=== PATIENT | female | born 1950 | race African-American/Black ===

== ENCOUNTER 2017-04-24 10:30 | Inpatient (IN) | payer MEDICARE ==
[2017-04-25 10:51] VITALS: BMI 35.6
[2017-05-02] MEDS ORDERED: Bacitracin Zinc Ointment 30 gm TUBE ONE (06:29)
[2017-05-02] MEDS ORDERED: Sodium Chloride 0.9% 10 ML ONE (06:29)
[2017-05-02] MEDS ORDERED: Levofloxacin 500 mg/D5W 100 ml Premix Bag ONE (07:03)
[2017-05-02] MEDS ORDERED: Midazolam HCl 2 mg/2 ml Vial ONE (07:04)
[2017-05-02] MEDS ORDERED: Fentanyl 100 MCG/2 ML VIAL ONE ×4 (07:04→12:38)
[2017-05-02] MEDS ORDERED: Promethazine HCl 25 MG/ML VIAL ONE ×2 (07:04→12:57)
[2017-05-02] MEDS ORDERED: Succinylcholine Chloride 20 MG/ML 10 ml SYRINGE FS ONE (07:32)
[2017-05-02] MEDS ORDERED: Lidocaine 1% PF 5 ML VIAL ONE (07:32)
[2017-05-02] MEDS ORDERED: Glycopyrrolate 0.2 MG/ML 5 ML SYRINGE ONE (07:32)
[2017-05-02] MEDS ORDERED: Ondansetron HCl/PF 4 MG/2 ML Vial ONE (07:32)
[2017-05-02] MEDS ORDERED: ePHEDrine/0.9% NaCl/PF SYRINGE 50 mg/10 ml ONE (07:32)
[2017-05-02] MEDS ORDERED: Propofol 200 MG/20 ML VIAL ONE (07:32)
[2017-05-02] MEDS ORDERED: Dexamethasone 20 MG/5 ML VIAL ONE (07:32)
[2017-05-02] MEDS ORDERED: PHENYLEPHRINE-NS 100 MCG/ML 10 ML SYRINGE ONE (07:32)
[2017-05-02] MEDS ORDERED: Phenylephrine 10 MG/NS 250 ML 250 ML ONE (08:01)
--- NOTE | 2017-05-02 08:59 | OP ---
DATE OF PROCEDURE: 05/02/2017 SURGEON: Yaakov Crawford M.D. BOARDING HOUSE MANAGER: Trev Page PA-C. PROCEDURE: C2-C4 laminectomy, posterolateral arthrodesis C3-4, demineralized bone matrix, local mor selized autograft, lateral mass screw instrumentation C3-4. PROCEDURE IN DETAIL: The patient was brought into the operating room, intubated. She was rolled in the prone position on gel-filled chest rolls with the head fixed in the kali truck headlight assembler. An inc ision was made exposing C2 through C4 and our level was confirmed by x-ray. We performed complete C 4, complete C3, and complete C2 laminectomies, completely decompressing the spinal cord. We next pl aced lateral mass screws at right C3, right C4, connected the screws by a tanya, which was secured by nuts that were final tightened. The wound was extensively irrigated, immaculate hemostasis was secu red. A combination of demineralized bone matrix and local morselized autograft was laid over the le ft laminar and posterolateral surfaces for the purpose of arthrodesis. Vancomycin powder was applie d and the wound was closed in anatomic layers.
[2017-05-02] MEDS ORDERED: SUGAMMADEX SODIUM 500 MG/5 ML VIAL ONE (09:12)
[2017-05-02] MEDS ORDERED: Promethazine HCl 25 MG/ML VIAL SLOW IVP PRN (09:27)
[2017-05-02] MEDS ORDERED: Ondansetron HCl/PF 4 MG/2 ML Vial IVP PRN ×3 (09:27→18:27)
[2017-05-02] MEDS ORDERED: HYDROmorphone 2 MG/ML VIAL SLOW IVP PRN (09:27)
[2017-05-02] MEDS ORDERED: HYDROcodone/Acetaminophen 7.5/325 mg Tablet PO PRN ×2 (10:56)
[2017-05-02] MEDS ORDERED: Acetaminophen 650 MG Suppository PR PRN (10:56)
[2017-05-02] MEDS ORDERED: Morphine Sulfate 2 MG/ML SYRINGE SLOW IVP PRN (10:56)
[2017-05-02] MEDS ORDERED: Acetaminophen 325 MG TAB PO PRN (10:56)
[2017-05-02] MEDS ORDERED: Lidocaine 5% Patch TD PRN (11:03)
[2017-05-02] MEDS ORDERED: Lidocaine Patch Removal 1 EACH TOP SCH (11:15)
[2017-05-02] MEDS ORDERED: Meperidine HCl/PF 25 MG/ML VIAL ONE (11:51)
[2017-05-02] MEDS: Fentanyl 100 MCG/2 ML VIAL SLOW IVP PRN ×2 (16:29→18:29)
[2017-05-02] MEDS: Sodium Chloride 0.9% 1,000 ML IV SCH ×2 (17:24→20:38)
[2017-05-02] MEDS: Cyclobenzaprine 10 MG TAB PO PRN (17:26)
--- NOTE | 2017-05-02 17:33 | PDOC.PN ---
- Subjective Encounter Start Date: 05/02/17 Encounter Start Time: 17:00 Pt seen for management of medical comorbidities including diabetes mellitus. Reports pain at surgical site. Denies chest pain, shortness of breath, fever or chills. - Objective MAR Reviewed: Yes Vital Signs & Weight: Weight Weight 201 lb Additional Labs: Accuchecks 05/02/17 14:43 POC Glucose 168 H Phys Exam - Physical Examination Obese HEENT: moist MMs Neck: supple Respiratory: no wheezing, no rales, no rhonchi, clear to auscultation bilateral Cardiovascular: RRR, no rub Gastrointestinal: soft, positive bowel sounds Dressing over upper back; drain+ Neurological: moves all 4 limbs Psychiatric: normal affect Skin: no rash Dx/Plan (1) Diabetes mellitus type 2 in obese Code(s): E11.69 - TYPE 2 DIABETES MELLITUS WITH OTHER SPECIFIED COMPLICATION; E66.9 - OBESITY, UNSPECIFIED Status: Chronic (2) Dyslipidemia Code(s): E78.5 - HYPERLIPIDEMIA, UNSPECIFIED Status: Chronic (3) Chronic back pain Code(s): M54.9 - DORSALGIA, UNSPECIFIED; G89.29 - OTHER CHRONIC PAIN Status: Chronic - Plan PT/OT * . Continue insulin sliding scale. Monitor vital signs per unit protocol. Continue statin. DVT prophylaxis and pain management per surgical service. Code status: Full. s/p C-spine surgery Review of Systems - Review of Systems Constitutional: negative: Fever, Chills, Sweats, Weakness, Malaise Respiratory: negative: Cough, Dry, Shortness of Breath, Hemoptysis, SOB with Excertion, Pleuritic Pain, Sputum, Wheezing Cardiovascular: negative: Chest Pain, Palpitations, Orthopnea, Paroxysmal Noc. Dyspnea, Edema, Light Headedness Musculoskeletal: Back Pain - Medications/Allergies Allergies/Adverse Reactions: Allergies Allergy/AdvReac Type Severity Reaction Status Date / Time Gadolinium-Containing Allergy Severe Anaphylaxis Verified 04/25/17 10:50 Contrast Medi iodine Allergy Severe Swollen Verified 04/25/17 10:50 tongue clindamycin Allergy Verified 04/25/17 10:50 hydrocodone Allergy Verified 04/25/17 10:50 morphine Allergy Verified 04/25/17 10:50 Penicillins Allergy Verified 04/25/17 10:50 prednisone Allergy "puts Verified 04/25/17 10:52 fluid on my body" Sulfa (Sulfonamide Allergy Verified 04/25/17 10:50 Antibiotics) steroids Allergy "puts Uncoded 04/25/17 10:52 fluid on my body" Medications: Current Medications Acetaminophen (Tylenol) 650 mg PO Q4H PRN PRN Reason: Headache/Fever or Pain(1-3) Acetaminophen (Tylenol) 650 mg [place] Q4H PRN PRN Reason: Headache/Fever or Pain(1-3) Artificial Tears (Tears Naturale) 1 drop EA EYE TID [facility] Atorvastatin Calcium (Lipitor) 20 mg PO HS [facility] Calcium Carbonate (Tums) 500 mg PO DAILY [facility] Cefazolin Sodium (Ancef) 2 gm SLOW IVP Q8HR [facility] Last Admin: 05/02/17 17:29 Dose: Not Given Cholecalciferol (Vitamin D3) 10,000 units PO DAILY [facility] Cyclobenzaprine HCl (Flexeril) 10 mg PO Q8H PRN PRN Reason: Muscle Spasm Last Admin: 05/02/17 17:26 Dose: 10 mg Duloxetine HCl (Cymbalta) 30 mg PO BID [facility] Fentanyl (Sublimaze) 50 mcg SLOW IVP Q2H PRN PRN Reason: Moderate to Severe Pain (6-10) Last Admin: 05/02/17 16:29 Dose: 50 mcg Ferrous Sulfate (Feosol) 325 mg PO MoFr@0900 [facility] Fluticasone Propionate (Flonase Nasal [place]) 0 gm NASAL HS [facility] Gabapentin (Neurontin) 600 mg PO QPM [facility] Guaifenesin (Mucinex) 1,200 mg PO Q12HR [facility] Hydrochlorothiazide (Hydrochlorothiazide) 12.5 mg PO DAILY [facility] Sodium Chloride (Normal Saline 0.9%) 1,000 mls @ 75 mls/hr IV .[id number] [facility] Last Admin: 05/02/17 17:24 Dose: Not Given Lidocaine (Lidoderm 5% Patch) 1 patch TD DAILYPRN PRN PRN Reason: Pain Metformin HCl (Glucophage) 500 mg PO BID[facility] Last Admin: 05/02/17 16:30 Dose: 500 mg Miscellaneous Medication (Lidocaine Patch Removal) 1 each TOP ASDIR [facility] Ondansetron HCl (Zofran) 4 mg IVP Q6H PRN PRN Reason: Nausea/Vomiting Oxybutynin Chloride (Ditropan Xl) 5 mg PO DAILY [facility] Biotin 1000 Mcg 0 each PO DAILY [facility] Polyethylene Glycol (Miralax) 17 gm PO DAILYPRN PRN PRN Reason: CONSTIPATION Sodium Chloride (Flush - Normal Saline) 10 ml IVF Q12HR [facility] Sodium Chloride (Flush - Normal Saline) 10 ml IVF PRN PRN PRN Reason: Saline Flush
[2017-05-02] MEDS ORDERED: Dextrose 50% Abboject 50 ML SYRINGE SLOW IVP PRN (17:35)
[2017-05-02] MEDS ORDERED: Dextrose 5% in Water 1,000 ML IV PRN (17:35)
[2017-05-02] MEDS ORDERED: HumaLOG 300 UNITS/3 ML VIAL SC PRN (17:35)
[2017-05-02] MEDS: Artificial Tears 18 DROP/0.9 ML EA EYE SCH ×2 (17:39→22:33)
[2017-05-02] MEDS ORDERED: diphenhydrAMINE HCl 50 MG/ML 1 ML VIAL IM PRN (18:27)
[2017-05-02] MEDS ORDERED: diphenhydrAMINE HCl 50 MG/ML 1 ML VIAL IVP PRN (18:27)
[2017-05-02] MEDS ORDERED: HYDROmorphone 10 mg/100 ml CADD IVPB PRN (18:27)
[2017-05-02] MEDS ORDERED: Promethazine HCl 25 MG/ML VIAL IM PRN (18:27)
[2017-05-02] MEDS ORDERED: diphenhydrAMINE HCl 25 MG CAP PO PRN (18:27)
[2017-05-02] MEDS ORDERED: Naloxone HCl 0.4 mg/ml Vial IV PRN (18:27)
[2017-05-02] MEDS ORDERED: Zolpidem Tartrate 5 MG TAB PO PRN (18:27)
[2017-05-02] MEDS ORDERED: Communication Order-Pharmacy FS SCH (18:30)
[2017-05-02] MEDS ORDERED: Fentanyl 5000 MCG/250 ML CADD IV PRN (18:45)
[2017-05-02] MEDS: guaiFENesin ER 600 MG TAB PO SCH (22:29)
[2017-05-02] MEDS: Atorvastatin Calcium 20 MG TAB PO SCH (22:29)
[2017-05-02] MEDS: Fluticasone Propionate Nasal Spray 16 gm Bottle NASAL SCH (22:29)
[2017-05-02] MEDS: Gabapentin 300 MG CAP PO SCH (22:32)
[2017-05-03] MEDS: Polyethylene Glycol 3350 17 GM Packet PO PRN (07:30)
[2017-05-03] MEDS ORDERED: BIOTIN 1000 MCG PO SCH (09:00)
[2017-05-03] MEDS: Hydrochlorothiazide 25 MG TAB PO SCH (11:00)
[2017-05-03] MEDS: guaiFENesin ER 600 MG TAB PO SCH ×2 (11:02→20:44)
[2017-05-03] MEDS: Calcium Carbonate 500 MG ChewTAB PO SCH ×2 (11:03→11:08)
[2017-05-03] MEDS: Artificial Tears 18 DROP/0.9 ML EA EYE SCH ×3 (11:04→20:49)
--- NOTE | 2017-05-03 11:31 | PDOC.PN ---
- Subjective Encounter Start Date: 05/03/17 Encounter Start Time: 11:29 Patient seen and examined. No new complaints. No overnight events. Pain controlled while on PROCESSING MGR. No new focal deficits.. - Objective MAR Reviewed: Yes Vital Signs & Weight: Vital Signs (12 hours) Temp Pulse Resp BP BP Pulse Ox 05/03/17 09:15 122/89 05/03/17 07:40 98.9 F 65 18 106/49 L 92 L 05/03/17 04:28 99.5 F 72 16 148/52 H 96 05/03/17 00:14 99.5 F 75 18 108/62 94 L Weight Weight 201 lb I&O: 05/02/17 05/03/17 05/04/17 06:59 06:59 06:59 Intake Total 240 Output Total 15 Balance -15 240 Additional Labs: Accuchecks 05/03/17 05/02/17 05/02/17 05:37 20:56 18:12 POC Glucose 112 H 119 H 144 H 05/02/17 14:43 POC Glucose 168 H Phys Exam - Physical Examination Constitutional: NAD Respiratory: no wheezing, no rhonchi Cardiovascular: RRR, no rub Gastrointestinal: soft, non-tender, positive bowel sounds Musculoskeletal: no edema Dx/Plan (1) Chronic back pain Code(s): M54.9 - DORSALGIA, UNSPECIFIED; G89.29 - OTHER CHRONIC PAIN Status: Chronic (2) Dyslipidemia Code(s): E78.5 - HYPERLIPIDEMIA, UNSPECIFIED Status: Chronic (3) Hypertension Code(s): I10 - ESSENTIAL (PRIMARY) HYPERTENSION Status: Chronic (4) Diabetes mellitus type 2 in obese Code(s): E11.69 - TYPE 2 DIABETES MELLITUS WITH OTHER SPECIFIED COMPLICATION; E66.9 - OBESITY, UNSPECIFIED Status: Chronic (5) Obesity (BMI 30-39.9) Code(s): E66.9 - OBESITY, UNSPECIFIED Status: Chronic (6) CKD (chronic kidney disease) stage 2, GFR 60-89 ml/min Code(s): N18.2 - CHRONIC KIDNEY DISEASE, STAGE 2 (MILD) Status: Chronic - Plan cont current plan of care, DVT proph w/SCDs * Cont current meds as below * Cont sliding scale * Cont therapy * Will follow Review of Systems - Review of Systems Constitutional: negative: Fever, Chills, Sweats, Weakness, Malaise, Other Respiratory: negative: Cough, Dry, Shortness of Breath, Hemoptysis, SOB with Excertion, Pleuritic Pain, Sputum, Wheezing Cardiovascular: negative: Chest Pain, Palpitations, Orthopnea, Paroxysmal Noc. Dyspnea, Edema, Light Headedness, Other Neurological: negative: Weakness, Numbness, Incoordination, Change in Speech, Confusion, Seizures, Other - Medications/Allergies Allergies/Adverse Reactions: Allergies Allergy/AdvReac Type Severity Reaction Status Date / Time Gadolinium-Containing Allergy Severe Anaphylaxis Verified 04/25/17 10:50 Contrast Medi iodine Allergy Severe Swollen Verified 04/25/17 10:50 tongue clindamycin Allergy Verified 04/25/17 10:50 hydrocodone Allergy Verified 04/25/17 10:50 morphine Allergy Verified 04/25/17 10:50 Penicillins Allergy Verified 04/25/17 10:50 prednisone Allergy "puts Verified 04/25/17 10:52 fluid on my body" Sulfa (Sulfonamide Allergy Verified 04/25/17 10:50 Antibiotics) steroids Allergy "puts Uncoded 04/25/17 10:52 fluid on my body" Medications: Current Medications Acetaminophen (Tylenol) 650 mg PO Q4H PRN PRN Reason: Headache/Fever or Pain(1-3) Acetaminophen (Tylenol) 650 mg [place] Q4H PRN PRN Reason: Headache/Fever or Pain(1-3) Artificial Tears (Tears Naturale) 1 drop EA EYE TID [facility] Last Admin: 05/03/17 11:04 Dose: 1 drop Atorvastatin Calcium (Lipitor) 20 mg PO HS [facility] Last Admin: 05/02/17 22:29 Dose: Not Given Calcium Carbonate (Tums) 500 mg PO DAILY [facility] Last Admin: 05/03/17 11:08 Dose: Not Given Cefazolin Sodium (Ancef) 2 gm SLOW IVP Q8HR [facility] Last Admin: 05/03/17 05:31 Dose: 2 gm Cholecalciferol (Vitamin D3) 10,000 units PO DAILY [facility] Cyclobenzaprine HCl (Flexeril) 10 mg PO Q8H PRN PRN Reason: Muscle Spasm Last Admin: 05/02/17 17:26 Dose: 10 mg Dextrose/Water (Dextrose 50%) 25 gm SLOW IVP PRN PRN PRN Reason: Hypoglycemia Diphenhydramine HCl (Benadryl) 25 mg IVP Q3H PRN PRN Reason: Itching Diphenhydramine HCl (Benadryl) 25 mg PO Q3H PRN PRN Reason: Itching Diphenhydramine HCl (Benadryl) 25 mg IM Q3H PRN PRN Reason: Itching Duloxetine HCl (Cymbalta) 30 mg PO BID [facility] Last Admin: 05/03/17 11:03 Dose: 30 mg Fentanyl (Fentanyl Cadd) 0 mcg IV INF PRN PRN Reason: Pain Last Admin: 05/02/17 20:02 Dose: 5,000 mcg Ferrous Sulfate (Feosol) 325 mg PO MoFr@0900 [facility] Fluticasone Propionate (Flonase Nasal [place]) 0 gm NASAL HS [facility] Last Admin: 05/02/17 22:29 Dose: Not Given Gabapentin (Neurontin) 600 mg PO QPM [facility] Last Admin: 05/02/17 22:32 Dose: 600 mg Glucagon (Glucagon) 1 mg IM PRN PRN PRN Reason: Hypoglycemia Guaifenesin (Mucinex) 1,200 mg PO Q12HR [facility] Last Admin: 05/03/17 11:02 Dose: 1,200 mg Hydrochlorothiazide (Hydrochlorothiazide) 12.5 mg PO DAILY [facility] Last Admin: 05/03/17 11:00 Dose: 12.5 mg Sodium Chloride (Normal Saline 0.9%) 1,000 mls @ 75 mls/hr IV .[id number] [facility] Last Admin: 05/02/17 20:38 Dose: 1,000 mls Dextrose/Water (D5w) 1,000 mls @ 0 mls/hr IV .Q0M PRN; As Directed PRN Reason: Hypoglycemia Insulin Human Lispro (Humalog) 0 units SC .MILD SLIDING SCALE PRN PRN Reason: Mild Correctional Scale Lidocaine (Lidoderm 5% Patch) 1 patch TD DAILYPRN PRN PRN Reason: Pain Metformin HCl (Glucophage) 500 mg PO BID-[facility] Last Admin: 05/03/17 11:03 Dose: 500 mg Miscellaneous Medication (Lidocaine Patch Removal) 1 each TOP ASDIR [facility] Naloxone HCl (Narcan) 0.2 mg IV Q5MIN PRN PRN Reason: Opiate Reversal Ondansetron HCl (Zofran) 4 mg IVP Q6H PRN PRN Reason: Nausea/Vomiting Oxybutynin Chloride (Ditropan Xl) 5 mg PO DAILY [facility] Last Admin: 05/03/17 11:00 Dose: 5 mg Polyethylene Glycol (Miralax) 17 gm PO DAILYPRN PRN PRN Reason: CONSTIPATION Last Admin: 05/03/17 07:30 Dose: 17 gm Promethazine HCl (Phenergan) 12.5 mg IM Q4H PRN PRN Reason: Nausea/Vomiting Sodium Chloride (Flush - Normal Saline) 10 ml IVF Q12HR [facility] Last Admin: 05/03/17 11:04 Dose: Not Given Sodium Chloride (Flush - Normal Saline) 10 ml IVF PRN PRN PRN Reason: Saline Flush Zolpidem Tartrate (Ambien) 5 mg PO HSPRN PRN PRN Reason: Insomnia
[2017-05-03] MEDS ORDERED: traMADol HCl 50 MG TAB PO PRN (12:31)
[2017-05-03] MEDS: Sodium Chloride 0.9% 1,000 ML IV SCH ×2 (15:57→22:59)
[2017-05-03] MEDS: Atorvastatin Calcium 20 MG TAB PO SCH (20:44)
[2017-05-03] MEDS: Gabapentin 300 MG CAP PO SCH (20:44)
[2017-05-03] MEDS: Fluticasone Propionate Nasal Spray 16 gm Bottle NASAL SCH (20:44)
[2017-05-04] MEDS: Sodium Chloride 0.9% 1,000 ML IV SCH ×2 (03:43→15:57)
[2017-05-04] MEDS: Ferrous Sulfate 325 MG TAB PO SCH (08:52)
[2017-05-04] MEDS: guaiFENesin ER 600 MG TAB PO SCH ×2 (08:53→21:02)
[2017-05-04] MEDS: Calcium Carbonate 500 MG ChewTAB PO SCH (08:54)
[2017-05-04] MEDS: Polyethylene Glycol 3350 17 GM Packet PO PRN (08:54)
[2017-05-04] MEDS: Hydrochlorothiazide 25 MG TAB PO SCH (08:54)
[2017-05-04] MEDS: traMADol HCl 50 MG TAB PO PRN ×2 (08:58→17:52)
[2017-05-04] MEDS: Artificial Tears 18 DROP/0.9 ML EA EYE SCH ×3 (10:17→21:00)
[2017-05-04] MEDS: Cyclobenzaprine 10 MG TAB PO PRN (13:10)
[2017-05-04] MEDS ORDERED: Furosemide 20 MG/2 ML VIAL SLOW IVP SCH (13:30)
--- NOTE | 2017-05-04 15:45 | RAD ---
EXAM: ONE VIEW CHEST 05/04/17 COMPARISON: 09/21/07, 04/03/17. HISTORY: Shortness of breath. Portable upright chest demonstrates atherosclerosis of the aorta. Normal cardiac silhouette. The pul monary vessels and hilum are normal. No masses or consolidation. No pneumothorax or osseous abnorma lities. Surgical fusion hardware is noted. IMPRESSION: 1. No acute cardiopulmonary process. 2. Atherosclerosis. POS: [facility]
--- NOTE | 2017-05-04 19:32 | PDOC.PN ---
- Subjective Encounter Start Date: 05/04/17 Encounter Start Time: 08:00 Patient seen and examined. No new complaints. No overnight events - Objective MAR Reviewed: Yes Vital Signs & Weight: Vital Signs (12 hours) Temp Pulse Resp BP Pulse Ox 05/04/17 18:33 74 12 94 L 05/04/17 17:25 98.7 F 74 18 139/80 97 05/04/17 14:24 94 L 05/04/17 14:23 84 12 05/04/17 12:50 97 05/04/17 12:00 98.9 F 90 19 111/72 05/04/17 08:25 99.2 F 84 19 90 L Weight Weight 201 lb I&O: 05/03/17 05/04/17 05/05/17 06:59 06:59 06:59 Intake Total 960 1200 Output Total 15 55 Balance -15 905 1200 Additional Labs: Accuchecks 05/04/17 05/04/17 05/04/17 17:10 11:32 06:22 POC Glucose 155 H 132 H 130 H 05/03/17 20:13 POC Glucose 140 H Phys Exam - Physical Examination Constitutional: NAD Respiratory: no wheezing, no rales Scat rhonchi at bases Cardiovascular: RRR, no rub Gastrointestinal: soft, positive bowel sounds Musculoskeletal: no edema Neurological: non-focal, moves all 4 limbs Psychiatric: A&O x 3 Dx/Plan (1) Chronic back pain Code(s): M54.9 - DORSALGIA, UNSPECIFIED; G89.29 - OTHER CHRONIC PAIN Status: Chronic (2) Dyslipidemia Code(s): E78.5 - HYPERLIPIDEMIA, UNSPECIFIED Status: Chronic (3) Hypertension Code(s): I10 - ESSENTIAL (PRIMARY) HYPERTENSION Status: Chronic (4) Obesity (BMI 30-39.9) Code(s): E66.9 - OBESITY, UNSPECIFIED Status: Chronic (5) CKD (chronic kidney disease) stage 2, GFR 60-89 ml/min Code(s): N18.2 - CHRONIC KIDNEY DISEASE, STAGE 2 (MILD) Status: Chronic (6) DM2 (diabetes mellitus, type 2) Status: Chronic - Plan cont current plan of care, PT/OT, director of social services, incentive spirometry, DVT proph w/SCDs * Cont home meds including diuretics * Cont current meds as below * Cont sliding scale * Cont therapy * IS encouraged. * Will follow Review of Systems - Review of Systems Constitutional: negative: Fever, Chills, Sweats, Weakness, Malaise, Other Respiratory: Cough, Sputum. negative: Dry, Shortness of Breath, Hemoptysis, SOB with Excertion, Pleuritic Pain, Wheezing Cardiovascular: negative: Chest Pain, Palpitations, Orthopnea, Paroxysmal Noc. Dyspnea, Edema, Light Headedness, Other Gastrointestinal: negative: Nausea, Vomiting, Abdominal Pain, Diarrhea, Constipation, Melena, Hematochezia, Other - Medications/Allergies Allergies/Adverse Reactions: Allergies Allergy/AdvReac Type Severity Reaction Status Date / Time Gadolinium-Containing Allergy Severe Anaphylaxis Verified 04/25/17 10:50 Contrast Medi iodine Allergy Severe Swollen Verified 04/25/17 10:50 tongue clindamycin Allergy Verified 04/25/17 10:50 hydrocodone Allergy Verified 04/25/17 10:50 morphine Allergy Verified 04/25/17 10:50 Penicillins Allergy Verified 04/25/17 10:50 prednisone Allergy "puts Verified 04/25/17 10:52 fluid on my body" Sulfa (Sulfonamide Allergy Verified 04/25/17 10:50 Antibiotics) steroids Allergy "puts Uncoded 04/25/17 10:52 fluid on my body" Medications: Current Medications Acetaminophen (Tylenol) 650 mg PO Q4H PRN PRN Reason: Headache/Fever or Pain(1-3) Acetaminophen (Tylenol) 650 mg [place] Q4H PRN PRN Reason: Headache/Fever or Pain(1-3) Albuterol/Ipratropium (Duoneb) 3 ml NEB [id number] [facility] Last Admin: 05/04/17 18:33 Dose: 3 ml Albuterol/Ipratropium (Duoneb) 3 ml NEB Q2H PRN PRN Reason: SOB &/or Wheezing Artificial Tears (Tears Naturale) 1 drop EA EYE TID [facility] Last Admin: 05/04/17 17:51 Dose: Not Given Atorvastatin Calcium (Lipitor) 20 mg PO HS [facility] Last Admin: 05/03/17 20:44 Dose: 20 mg Calcium Carbonate (Tums) 500 mg PO DAILY [facility] Last Admin: 05/04/17 08:54 Dose: 500 mg Cefazolin Sodium (Ancef) 2 gm SLOW IVP Q8HR [facility] Last Admin: 05/04/17 13:10 Dose: 2 gm Cholecalciferol (Vitamin D3) 10,000 units PO DAILY [facility] Last Admin: 05/04/17 08:57 Dose: 10,000 units Cyclobenzaprine HCl (Flexeril) 10 mg PO Q8H PRN PRN Reason: Muscle Spasm Last Admin: 05/04/17 13:10 Dose: 10 mg Dextrose/Water (Dextrose 50%) 25 gm SLOW IVP PRN PRN PRN Reason: Hypoglycemia Diphenhydramine HCl (Benadryl) 25 mg IVP Q3H PRN PRN Reason: Itching Diphenhydramine HCl (Benadryl) 25 mg PO Q3H PRN PRN Reason: Itching Diphenhydramine HCl (Benadryl) 25 mg IM Q3H PRN PRN Reason: Itching Duloxetine HCl (Cymbalta) 30 mg PO BID [facility] Last Admin: 05/04/17 08:54 Dose: 30 mg Ferrous Sulfate (Feosol) 325 mg PO MoFr@0900 [facility] Last Admin: 05/04/17 08:52 Dose: 325 mg Fluticasone Propionate (Flonase Nasal [place]) 0 gm NASAL HS [facility] Last Admin: 05/03/17 20:44 Dose: 1 spr Gabapentin (Neurontin) 600 mg PO QPM [facility] Last Admin: 05/03/17 20:44 Dose: 600 mg Glucagon (Glucagon) 1 mg IM PRN PRN PRN Reason: Hypoglycemia Guaifenesin (Mucinex) 1,200 mg PO Q12HR [facility] Last Admin: 05/04/17 08:53 Dose: 1,200 mg Hydrochlorothiazide (Hydrochlorothiazide) 12.5 mg PO DAILY [facility] Last Admin: 05/04/17 08:54 Dose: 12.5 mg Sodium Chloride (Normal Saline 0.9%) 1,000 mls @ 75 mls/hr IV .[id number] [facility] Last Admin: 05/04/17 15:57 Dose: Not Given Dextrose/Water (D5w) 1,000 mls @ 0 mls/hr IV .Q0M PRN; As Directed PRN Reason: Hypoglycemia Insulin Human Lispro (Humalog) 0 units SC .MILD SLIDING SCALE PRN PRN Reason: Mild Correctional Scale Lidocaine (Lidoderm 5% Patch) 1 patch TD DAILYPRN PRN PRN Reason: Pain Metformin HCl (Glucophage) 500 mg PO BID-[facility] Last Admin: 05/04/17 17:52 Dose: Not Given Miscellaneous Medication (Lidocaine Patch Removal) 1 each TOP ASDIR [facility] Naloxone HCl (Narcan) 0.2 mg IV Q5MIN PRN PRN Reason: Opiate Reversal Ondansetron HCl (Zofran) 4 mg IVP Q6H PRN PRN Reason: Nausea/Vomiting Oxybutynin Chloride (Ditropan Xl) 5 mg PO DAILY [facility] Last Admin: 05/04/17 09:00 Dose: 5 mg Polyethylene Glycol (Miralax) 17 gm PO DAILYPRN PRN PRN Reason: CONSTIPATION Last Admin: 05/04/17 08:54 Dose: 17 gm Promethazine HCl (Phenergan) 12.5 mg IM Q4H PRN PRN Reason: Nausea/Vomiting Sodium Chloride (Flush - Normal Saline) 10 ml IVF Q12HR [facility] Last Admin: 05/04/17 08:59 Dose: Not Given Sodium Chloride (Flush - Normal Saline) 10 ml IVF PRN PRN PRN Reason: Saline Flush Tramadol HCl (Ultram) 50 mg PO Q6H PRN PRN Reason: PAIN 1-4/10 Last Admin: 05/03/17 16:00 Dose: 50 mg Tramadol HCl (Ultram) 100 mg PO Q6H PRN PRN Reason: PAIN 5-10/10 Last Admin: 05/04/17 17:52 Dose: 100 mg Zolpidem Tartrate (Ambien) 5 mg PO HSPRN PRN PRN Reason: Insomnia
[2017-05-04] MEDS: Gabapentin 300 MG CAP PO SCH (21:01)
[2017-05-04] MEDS: Fluticasone Propionate Nasal Spray 16 gm Bottle NASAL SCH (21:01)
[2017-05-04] MEDS: Atorvastatin Calcium 20 MG TAB PO SCH (21:01)
[2017-05-05] MEDS: Sodium Chloride 0.9% 1,000 ML IV SCH (04:36)
--- NOTE | 2017-05-05 08:21 | PDOC.PN ---
- Subjective Encounter Start Date: 05/05/17 Encounter Start Time: 08:19 Patient seen and examined. No new complaints. No overnight events - Objective MAR Reviewed: Yes Vital Signs & Weight: Vital Signs (12 hours) Temp Pulse Resp BP Pulse Ox 05/05/17 08:07 86 12 05/05/17 04:00 98.1 F 90 18 109/74 91 L 05/05/17 03:33 94 L 05/05/17 02:08 12 05/05/17 00:00 99.1 F 80 20 108/64 94 L 05/04/17 22:05 94 16 Weight Weight 201 lb I&O: 05/04/17 05/05/17 05/06/17 06:59 06:59 06:59 Intake Total 960 2190 Output Total 55 Balance 905 2190 Additional Labs: Accuchecks 05/05/17 05/04/17 05/04/17 05:59 22:19 17:10 POC Glucose 127 H 233 H 155 H 05/04/17 11:32 POC Glucose 132 H Radiology Reviewed by me: Yes (CXR - No infiltrate) Phys Exam - Physical Examination Constitutional: NAD Respiratory: no wheezing, no rhonchi Scat rales at bases Cardiovascular: RRR, no rub Gastrointestinal: soft, non-tender, positive bowel sounds Musculoskeletal: no edema Neurological: non-focal, moves all 4 limbs Dx/Plan (1) Chronic back pain Code(s): M54.9 - DORSALGIA, UNSPECIFIED; G89.29 - OTHER CHRONIC PAIN Status: Chronic (2) Dyslipidemia Code(s): E78.5 - HYPERLIPIDEMIA, UNSPECIFIED Status: Chronic (3) Hypertension Code(s): I10 - ESSENTIAL (PRIMARY) HYPERTENSION Status: Chronic (4) Obesity (BMI 30-39.9) Code(s): E66.9 - OBESITY, UNSPECIFIED Status: Chronic (5) CKD (chronic kidney disease) stage 2, GFR 60-89 ml/min Code(s): N18.2 - CHRONIC KIDNEY DISEASE, STAGE 2 (MILD) Status: Chronic (6) DM2 (diabetes mellitus, type 2) Status: Chronic - Plan cont current plan of care, PT/OT, respiratory therapy, incentive spirometry, DVT proph w/SCDs * Cont nebs * Add stool softeners * IS * Increase HCTZ dose to 25 mg daily * Received one dose of Lasix yesterday * CXR - reviewed * AM labs Review of Systems - Review of Systems Cardiovascular: negative: Chest Pain, Palpitations, Orthopnea, Paroxysmal Noc. Dyspnea, Edema, Light Headedness, Other Gastrointestinal: negative: Nausea, Vomiting, Abdominal Pain, Diarrhea, Constipation, Melena, Hematochezia, Other Genitourinary: negative: Dysuria, Frequency, Incontinence, Hematuria, Retention , Other - Medications/Allergies Allergies/Adverse Reactions: Allergies Allergy/AdvReac Type Severity Reaction Status Date / Time Gadolinium-Containing Allergy Severe Anaphylaxis Verified 04/25/17 10:50 Contrast Medi iodine Allergy Severe Swollen Verified 04/25/17 10:50 tongue clindamycin Allergy Verified 04/25/17 10:50 hydrocodone Allergy Verified 04/25/17 10:50 morphine Allergy Verified 04/25/17 10:50 Penicillins Allergy Verified 04/25/17 10:50 prednisone Allergy "puts Verified 04/25/17 10:52 fluid on my body" Sulfa (Sulfonamide Allergy Verified 04/25/17 10:50 Antibiotics) steroids Allergy "puts Uncoded 04/25/17 10:52 fluid on my body" Medications: Current Medications Acetaminophen (Tylenol) 650 mg PO Q4H PRN PRN Reason: Headache/Fever or Pain(1-3) Last Admin: 05/05/17 06:15 Dose: 650 mg Acetaminophen (Tylenol) 650 mg [place] Q4H PRN PRN Reason: Headache/Fever or Pain(1-3) Albuterol/Ipratropium (Duoneb) 3 ml NEB [id number] [facility] Last Admin: 05/05/17 08:07 Dose: 3 ml Albuterol/Ipratropium (Duoneb) 3 ml NEB Q2H PRN PRN Reason: SOB &/or Wheezing Artificial Tears (Tears Naturale) 1 drop EA EYE TID [facility] Last Admin: 05/04/17 21:00 Dose: 1 drop Atorvastatin Calcium (Lipitor) 20 mg PO HS [facility] Last Admin: 05/04/17 21:01 Dose: 20 mg Calcium Carbonate (Tums) 500 mg PO DAILY [facility] Last Admin: 05/04/17 08:54 Dose: 500 mg Cefazolin Sodium (Ancef) 2 gm SLOW IVP Q8HR [facility] Last Admin: 05/05/17 06:16 Dose: 2 gm Cholecalciferol (Vitamin D3) 10,000 units PO DAILY [facility] Last Admin: 05/04/17 08:57 Dose: 10,000 units Cyclobenzaprine HCl (Flexeril) 10 mg PO Q8H PRN PRN Reason: Muscle Spasm Last Admin: 05/04/17 13:10 Dose: 10 mg Dextrose/Water (Dextrose 50%) 25 gm SLOW IVP PRN PRN PRN Reason: Hypoglycemia Diphenhydramine HCl (Benadryl) 25 mg IVP Q3H PRN PRN Reason: Itching Diphenhydramine HCl (Benadryl) 25 mg PO Q3H PRN PRN Reason: Itching Diphenhydramine HCl (Benadryl) 25 mg IM Q3H PRN PRN Reason: Itching Duloxetine HCl (Cymbalta) 30 mg PO BID [facility] Last Admin: 05/04/17 21:01 Dose: 30 mg Ferrous Sulfate (Feosol) 325 mg PO MoFr@0900 [facility] Last Admin: 05/04/17 08:52 Dose: 325 mg Fluticasone Propionate (Flonase Nasal [place]) 0 gm NASAL HS [facility] Last Admin: 05/04/17 21:01 Dose: 1 spr Gabapentin (Neurontin) 600 mg PO QPM [facility] Last Admin: 05/04/17 21:01 Dose: 600 mg Glucagon (Glucagon) 1 mg IM PRN PRN PRN Reason: Hypoglycemia Guaifenesin (Mucinex) 1,200 mg PO Q12HR [facility] Last Admin: 05/04/17 21:02 Dose: 1,200 mg Hydrochlorothiazide (Hydrochlorothiazide) 25 mg PO DAILY [facility] Dextrose/Water (D5w) 1,000 mls @ 0 mls/hr IV .Q0M PRN; As Directed PRN Reason: Hypoglycemia Insulin Human Lispro (Humalog) 0 units SC .MILD SLIDING SCALE PRN PRN Reason: Mild Correctional Scale Last Admin: 05/04/17 22:20 Dose: 3 unit Lidocaine (Lidoderm 5% Patch) 1 patch TD DAILYPRN PRN PRN Reason: Pain Metformin HCl (Glucophage) 500 mg PO BID-[facility] Last Admin: 05/04/17 17:52 Dose: Not Given Miscellaneous Medication (Lidocaine Patch Removal) 1 each TOP ASDIR [facility] Naloxone HCl (Narcan) 0.2 mg IV Q5MIN PRN PRN Reason: Opiate Reversal Ondansetron HCl (Zofran) 4 mg IVP Q6H PRN PRN Reason: Nausea/Vomiting Oxybutynin Chloride (Ditropan Xl) 5 mg PO DAILY [facility] Last Admin: 05/04/17 09:00 Dose: 5 mg Polyethylene Glycol (Miralax) 17 gm PO DAILYPRN PRN PRN Reason: CONSTIPATION Last Admin: 05/04/17 08:54 Dose: 17 gm Polyethylene Glycol (Miralax) 17 gm PO DAILY [facility] Promethazine HCl (Phenergan) 12.5 mg IM Q4H PRN PRN Reason: Nausea/Vomiting Senna/Docusate Sodium (Senokot S) 1 tab PO BID [facility] Sodium Chloride (Flush - Normal Saline) 10 ml IVF Q12HR [facility] Last Admin: 05/04/17 21:15 Dose: 10 ml Sodium Chloride (Flush - Normal Saline) 10 ml IVF PRN PRN PRN Reason: Saline Flush Last Admin: 05/05/17 06:16 Dose: 10 ml Tramadol HCl (Ultram) 50 mg PO Q6H PRN PRN Reason: PAIN 1-410 Last Admin: 05/03/17 16:00 Dose: 50 mg Tramadol HCl (Ultram) 100 mg PO Q6H PRN PRN Reason: PAIN 5-1010 Last Admin: 05/04/17 17:52 Dose: 100 mg
[2017-05-05] MEDS: Polyethylene Glycol 3350 17 GM Packet PO SCH (09:08)
[2017-05-05] MEDS: guaiFENesin ER 600 MG TAB PO SCH ×2 (09:09→21:05)
[2017-05-05] MEDS: Artificial Tears 18 DROP/0.9 ML EA EYE SCH ×3 (09:09→21:06)
[2017-05-05] MEDS: Calcium Carbonate 500 MG ChewTAB PO SCH (09:09)
[2017-05-05] MEDS: Hydrochlorothiazide 25 MG TAB PO SCH (09:10)
[2017-05-05] MEDS: Senokot S 8.6-50 MG TAB PO SCH ×2 (09:10→21:05)
[2017-05-05 09:13] LABS: Hematocrit 41.3 % (36.0-47.0)
[2017-05-05 09:28] LABS: Anion Gap 15 mmol/L (10-20); BUN (Urea Nitrogen) 7 mg/dL (9.8-20.1); BUN/Creatinine Ratio 8.33; Calc. Creatinine Clearance 92 mL/min (70-130); Calcium 10.1 mg/dL (7.8-10.44); Carbon Dioxide 30 mmol/L (23-31); Chloride 94 mmol/L (98-107); Estimated GFR-MDRD 82; Magnesium 1.7 mg/dL (1.6-2.6); Phosphorus 3.3 mg/dL (2.3-4.7)
[2017-05-05] MEDS ORDERED: Potassium Chloride 10 MEQ TAB PO SCH (10:30)
[2017-05-05] MEDS: Potassium Chloride 10 MEQ TAB PO SCH ×2 (12:07→17:20)
[2017-05-05] MEDS: Cyclobenzaprine 10 MG TAB PO PRN (12:09)
--- NOTE | 2017-05-05 12:55 | PRG ---
DATE OF SERVICE: 05/05/2017 I saw Ms. Amezcua in her hospital room this morning. She is resting comfortably. She is working [facility] physical therapy since her operation to decompress the cervical spine. She is awaiting the rehab placement. Ms. Amezcua is actually doing quite well. Around this weekend to help manage her, I an ticipate a placement in the rehabilitation facility early in the weekend.
--- NOTE | 2017-05-05 12:57 | PRG ---
DATE OF SERVICE: 05/05/2017 Ms. Amezcua is a patient of Dr. Crawford's, status post C2-C4 laminectomy and fusion. Overnight, th ere have been no acute events. Her vital signs have been stable. She has been slightly hypotensive at 91/59. Her labs this morning show a glucose of 127. There are no new neurologic deficits on ex am. Case management has been working on rehab for discharge. She would like to go to [facility] in [place] for rehab. Referral has been placed and we are just waiting for disposition for rehab. Crissy pizarro she is here in the hospital, physical therapy can continue to work with her and ambulate as much as possible. If there are any further questions, please feel free to contact Neurosurgery.
[2017-05-05] MEDS: traMADol HCl 50 MG TAB PO PRN (17:20)
[2017-05-05] MEDS: Fluticasone Propionate Nasal Spray 16 gm Bottle NASAL SCH (21:04)
[2017-05-05] MEDS: Atorvastatin Calcium 20 MG TAB PO SCH (21:05)
[2017-05-05] MEDS: Gabapentin 300 MG CAP PO SCH (21:05)
[2017-05-06 06:13] LABS: Anion Gap 15 mmol/L (10-20); BUN (Urea Nitrogen) 6 mg/dL (9.8-20.1); BUN/Creatinine Ratio 7.89; Calc. Creatinine Clearance 102 mL/min (70-130); Carbon Dioxide 30 mmol/L (23-31); Chloride 98 mmol/L (98-107); Estimated GFR-MDRD Greater than 90; Phosphorus 2.9 mg/dL (2.3-4.7)
[2017-05-06] MEDS ORDERED: Cepastat Lozenges 1 LOZ PO PRN (06:19)
[2017-05-06] MEDS: Potassium Chloride 10 MEQ TAB PO SCH ×3 (08:39→16:51)
[2017-05-06] MEDS: Senokot S 8.6-50 MG TAB PO SCH ×2 (08:39→20:27)
[2017-05-06] MEDS: guaiFENesin ER 600 MG TAB PO SCH ×2 (08:39→20:27)
[2017-05-06] MEDS: Calcium Carbonate 500 MG ChewTAB PO SCH (08:39)
[2017-05-06] MEDS: Polyethylene Glycol 3350 17 GM Packet PO SCH (08:40)
[2017-05-06] MEDS: Hydrochlorothiazide 25 MG TAB PO SCH (08:40)
[2017-05-06] MEDS: Artificial Tears 18 DROP/0.9 ML EA EYE SCH ×3 (08:41→20:52)
--- NOTE | 2017-05-06 09:28 | PRG ---
DATE OF SERVICE: 05/06/2017 NEUROSURGERY PROGRESS NOTE SUBJECTIVE: Ms. 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 She i s awaiting her bed in rehabilitation facility and wants to leave the hospital. She has been in and out of bed on her own and made some walks with assistance. Ms. Amezcua does complain of a sore throat and at a request that I ordered her some Chloraseptic spr ay or lozenges. On my examination, I do not find any new neurological deficit. She is ready for transfer to rehabil itation at any time.
--- NOTE | 2017-05-06 09:54 | PDOC.PN ---
- Subjective Encounter Start Date: 05/06/17 Encounter Start Time: 07:40 -: old records requested/rev Patient seen and examined. No new complaints. No overnight events - Objective MAR Reviewed: Yes Vital Signs & Weight: Vital Signs (12 hours) Temp Pulse Resp BP Pulse Ox 05/06/17 08:00 98.2 F 92 14 120/61 95 05/06/17 06:58 88 16 05/06/17 04:00 98.6 F 91 16 109/60 95 05/06/17 02:14 12 05/06/17 01:31 94 L 05/06/17 00:00 98.4 F 87 16 110/63 93 L 05/05/17 22:25 12 Weight Weight 201 lb I&O: 05/05/17 05/06/17 05/07/17 06:59 06:59 06:59 Intake Total 2190 2470 Balance 2190 2470 Result Diagrams: 05/05/17 08:56 05/06/17 05:38 Additional Labs: Accuchecks 05/05/17 05/05/17 05/05/17 20:40 16:10 12:29 POC Glucose 143 H 125 H 107 Phys Exam - Physical Examination Constitutional: NAD HEENT: PERRLA, moist MMs, sclera anicteric Neck: no JVD, supple Respiratory: no wheezing, no rales, no rhonchi Cardiovascular: RRR, no significant murmur, no rub Gastrointestinal: soft, non-tender, no distention, positive bowel sounds Musculoskeletal: no edema, pulses present Neurological: non-focal, normal sensation, moves all 4 limbs Psychiatric: normal affect, A&O x 3 Skin: no rash, normal turgor Dx/Plan (1) S/P laminectomy Code(s): Z98.890 - OTHER SPECIFIED POSTPROCEDURAL STATES Status: Acute (2) CKD (chronic kidney disease) stage 2, GFR 60-89 ml/min Code(s): N18.2 - CHRONIC KIDNEY DISEASE, STAGE 2 (MILD) Status: Chronic (3) Chronic back pain Code(s): M54.9 - DORSALGIA, UNSPECIFIED; G89.29 - OTHER CHRONIC PAIN Status: Chronic (4) DM2 (diabetes mellitus, type 2) Status: Chronic (5) Dyslipidemia Code(s): E78.5 - HYPERLIPIDEMIA, UNSPECIFIED Status: Chronic (6) Hypertension Code(s): I10 - ESSENTIAL (PRIMARY) HYPERTENSION Status: Chronic (7) Obesity (BMI 30-39.9) Code(s): E66.9 - OBESITY, UNSPECIFIED Status: Chronic - Plan cont current plan of care, PT/OT, psychosocial rehabilitation counselor * medical problems are stable * pt is doing well * waiting for rehab placement * medication reviewed as below * symptomatic treatment.. Review of Systems - Review of Systems ENT: negative: Ear Pain, Ear Discharge, Nose Pain, Nose Discharge, Nose Congestion, Mouth Pain, Mouth Swelling, Throat Pain, Throat Swelling, Other Respiratory: negative: Cough, Dry, Shortness of Breath, Hemoptysis, SOB with Excertion, Pleuritic Pain, Sputum, Wheezing Cardiovascular: negative: Chest Pain, Palpitations, Orthopnea, Paroxysmal Noc. Dyspnea, Edema, Light Headedness, Other Gastrointestinal: negative: Nausea, Vomiting, Abdominal Pain, Diarrhea, Constipation, Melena, Hematochezia, Other Genitourinary: negative: Dysuria, Frequency, Incontinence, Hematuria, Retention , Other Musculoskeletal: negative: Neck Pain, Shoulder Pain, Arm Pain, Back Pain, Hand Pain, Leg Pain, Foot Pain, Other - Medications/Allergies Allergies/Adverse Reactions: Allergies Allergy/AdvReac Type Severity Reaction Status Date / Time Gadolinium-Containing Allergy Severe Anaphylaxis Verified 04/25/17 10:50 Contrast Medi iodine Allergy Severe Swollen Verified 04/25/17 10:50 tongue clindamycin Allergy Verified 04/25/17 10:50 hydrocodone Allergy Verified 04/25/17 10:50 morphine Allergy Verified 04/25/17 10:50 Penicillins Allergy Verified 04/25/17 10:50 prednisone Allergy "puts Verified 04/25/17 10:52 fluid on my body" Sulfa (Sulfonamide Allergy Verified 04/25/17 10:50 Antibiotics) steroids Allergy "puts Uncoded 04/25/17 10:52 fluid on my body" Medications: Current Medications Acetaminophen (Tylenol) 650 mg PO Q4H PRN PRN Reason: Headache/Fever or Pain(1-3) Last Admin: 05/05/17 06:15 Dose: 650 mg Acetaminophen (Tylenol) 650 mg IN Q4H PRN PRN Reason: Headache/Fever or Pain(1-3) Albuterol/Ipratropium (Duoneb) 3 ml NEB [id number] [facility] Last Admin: 05/06/17 06:58 Dose: 3 ml Albuterol/Ipratropium (Duoneb) 3 ml NEB Q2H PRN PRN Reason: SOB &/or Wheezing Artificial Tears (Tears Naturale) 1 drop EA EYE TID [facility] Last Admin: 05/06/17 08:41 Dose: Not Given Atorvastatin Calcium (Lipitor) 20 mg PO HS [facility] Last Admin: 05/05/17 21:05 Dose: 20 mg Calcium Carbonate (Tums) 500 mg PO DAILY [facility] Last Admin: 05/06/17 08:39 Dose: 500 mg Cholecalciferol (Vitamin D3) 10,000 units PO DAILY [facility] Last Admin: 05/06/17 08:40 Dose: 10,000 units Cyclobenzaprine HCl (Flexeril) 10 mg PO Q8H PRN PRN Reason: Muscle Spasm Last Admin: 05/05/17 12:09 Dose: 10 mg Dextrose/Water (Dextrose 50%) 25 gm SLOW IVP PRN PRN PRN Reason: Hypoglycemia Diphenhydramine HCl (Benadryl) 25 mg IVP Q3H PRN PRN Reason: Itching Diphenhydramine HCl (Benadryl) 25 mg PO Q3H PRN PRN Reason: Itching Diphenhydramine HCl (Benadryl) 25 mg IM Q3H PRN PRN Reason: Itching Duloxetine HCl (Cymbalta) 30 mg PO BID [facility] Last Admin: 05/06/17 08:39 Dose: 30 mg Ferrous Sulfate (Feosol) 325 mg PO MoFr@0900 [facility] Last Admin: 05/04/17 08:52 Dose: 325 mg Fluticasone Propionate (Flonase Nasal [employer]) 0 gm NASAL HS [facility] Last Admin: 05/05/17 21:04 Dose: 1 spr Gabapentin (Neurontin) 600 mg PO QPM [facility] Last Admin: 05/05/17 21:05 Dose: 600 mg Glucagon (Glucagon) 1 mg IM PRN PRN PRN Reason: Hypoglycemia Guaifenesin (Mucinex) 1,200 mg PO Q12HR [facility] Last Admin: 05/06/17 08:39 Dose: 1,200 mg Hydrochlorothiazide (Hydrochlorothiazide) 25 mg PO DAILY [facility] Last Admin: 05/06/17 08:40 Dose: 25 mg Dextrose/Water (D5w) 1,000 mls @ 0 mls/hr IV .Q0M PRN; As Directed PRN Reason: Hypoglycemia Insulin Human Lispro (Humalog) 0 units SC .MILD SLIDING SCALE PRN PRN Reason: Mild Correctional Scale Last Admin: 05/04/17 22:20 Dose: 3 unit Lidocaine (Lidoderm 5% Patch) 1 patch TD DAILYPRN PRN PRN Reason: Pain Metformin HCl (Glucophage) 500 mg PO BID-[facility] Last Admin: 05/06/17 08:40 Dose: 500 mg Miscellaneous Medication (Lidocaine Patch Removal) 1 each TOP ASDIR [facility] Naloxone HCl (Narcan) 0.2 mg IV Q5MIN PRN PRN Reason: Opiate Reversal Ondansetron HCl (Zofran) 4 mg IVP Q6H PRN PRN Reason: Nausea/Vomiting Oxybutynin Chloride (Ditropan Xl) 5 mg PO DAILY [facility] Last Admin: 05/06/17 08:40 Dose: 5 mg Polyethylene Glycol (Miralax) 17 gm PO DAILYPRN PRN PRN Reason: CONSTIPATION Last Admin: 05/04/17 08:54 Dose: 17 gm Polyethylene Glycol (Miralax) 17 gm PO DAILY [facility] Last Admin: 05/06/17 08:40 Dose: 17 gm Potassium Chloride (Klor-Con 10) 10 meq PO TID-[facility] Stop: 05/08/17 12:01 Last Admin: 05/06/17 08:39 Dose: 10 meq Promethazine HCl (Phenergan) 12.5 mg IM Q4H PRN PRN Reason: Nausea/Vomiting Senna/Docusate Sodium (Senokot S) 1 tab PO BID [facility] Last Admin: 05/06/17 08:39 Dose: 1 tab Sodium Chloride (Flush - Normal Saline) 10 ml IVF Q12HR [facility] Last Admin: 05/06/17 09:35 Dose: 10 ml Sodium Chloride (Flush - Normal Saline) 10 ml IVF PRN PRN PRN Reason: Saline Flush Last Admin: 05/05/17 06:16 Dose: 10 ml Throat Lozenges (Cepastat Lozenges) 1 javier PO Q2H PRN PRN Reason: Sore Throat Tramadol HCl (Ultram) 50 mg PO Q6H PRN PRN Reason: PAIN 1-11/20 Last Admin: 05/03/17 16:00 Dose: 50 mg Tramadol HCl (Ultram) 100 mg PO Q6H PRN PRN Reason: PAIN -05/22 Last Admin: 05/05/17 17:20 Dose: 100 mg
[2017-05-06] MEDS: Atorvastatin Calcium 20 MG TAB PO SCH (20:27)
[2017-05-06] MEDS: Gabapentin 300 MG CAP PO SCH (20:27)
[2017-05-06] MEDS: Fluticasone Propionate Nasal Spray 16 gm Bottle NASAL SCH (20:31)
[2017-05-07] MEDS: guaiFENesin ER 600 MG TAB PO SCH (09:06)
[2017-05-07] MEDS: Calcium Carbonate 500 MG ChewTAB PO SCH (09:06)
[2017-05-07] MEDS: Hydrochlorothiazide 25 MG TAB PO SCH (09:07)
[2017-05-07] MEDS: Potassium Chloride 10 MEQ TAB PO SCH ×2 (09:07→11:33)
[2017-05-07] MEDS: Ferrous Sulfate 325 MG TAB PO SCH (09:07)
[2017-05-07] MEDS: Senokot S 8.6-50 MG TAB PO SCH (09:08)
[2017-05-07] MEDS: Polyethylene Glycol 3350 17 GM Packet PO SCH (09:08)
--- NOTE | 2017-05-07 10:53 | PDOC.PN ---
- Subjective Encounter Start Date: 05/07/17 Encounter Start Time: 07:35 Patient seen and examined. No new complaints. No overnight events - Objective MAR Reviewed: Yes Vital Signs & Weight: Vital Signs (12 hours) Temp Pulse Resp BP Pulse Ox 05/07/17 08:09 98.3 F 87 16 109/61 94 L 05/07/17 06:34 89 14 96 05/07/17 04:00 98 F 99 16 105/73 98 05/07/17 03:04 94 14 94 L 05/07/17 00:00 98.8 F 90 16 103/67 92 L 05/06/17 23:02 86 14 93 L Weight Weight 201 lb I&O: 05/06/17 05/07/17 05/08/17 06:59 06:59 06:59 Intake Total 2470 Balance 2470 Result Diagrams: 05/05/17 08:56 05/06/17 05:38 Additional Labs: Accuchecks 05/07/17 05/06/17 05/06/17 06:03 19:46 15:26 POC Glucose 121 H 128 H 134 H 05/06/17 05/06/17 10:28 05:19 POC Glucose 191 H 133 H Phys Exam - Physical Examination Constitutional: NAD HEENT: PERRLA, moist MMs, sclera anicteric Neck: no JVD, supple Respiratory: no wheezing, no rales, no rhonchi Cardiovascular: RRR, no significant murmur, no rub Gastrointestinal: soft, non-tender, no distention, positive bowel sounds Musculoskeletal: no edema, pulses present Neurological: non-focal, normal sensation Psychiatric: normal affect, A&O x 3 Skin: no rash, normal turgor Dx/Plan (1) S/P laminectomy Code(s): Z98.890 - OTHER SPECIFIED POSTPROCEDURAL STATES Status: Acute (2) CKD (chronic kidney disease) stage 2, GFR 60-89 ml/min Code(s): N18.2 - CHRONIC KIDNEY DISEASE, STAGE 2 (MILD) Status: Chronic (3) Chronic back pain Code(s): M54.9 - DORSALGIA, UNSPECIFIED; G89.29 - OTHER CHRONIC PAIN Status: Chronic (4) DM2 (diabetes mellitus, type 2) Status: Chronic (5) Dyslipidemia Code(s): E78.5 - HYPERLIPIDEMIA, UNSPECIFIED Status: Chronic (6) Hypertension Code(s): I10 - ESSENTIAL (PRIMARY) HYPERTENSION Status: Chronic (7) Obesity (BMI 30-39.9) Code(s): E66.9 - OBESITY, UNSPECIFIED Status: Chronic - Plan cont current plan of care, PT/OT, nephrology social worker * medication reviewed as below * symptomatic treatment. * today to rehab * will sign off. Review of Systems - Review of Systems ENT: negative: Ear Pain, Ear Discharge, Nose Pain, Nose Discharge, Nose Congestion, Mouth Pain, Mouth Swelling, Throat Pain, Throat Swelling, Other Respiratory: negative: Cough, Dry, Shortness of Breath, Hemoptysis, SOB with Excertion, Pleuritic Pain, Sputum, Wheezing Cardiovascular: negative: Chest Pain, Palpitations, Orthopnea, Paroxysmal Noc. Dyspnea, Edema, Light Headedness, Other Gastrointestinal: negative: Nausea, Vomiting, Abdominal Pain, Diarrhea, Constipation, Melena, Hematochezia, Other Genitourinary: negative: Dysuria, Frequency, Incontinence, Hematuria, Retention , Other Musculoskeletal: negative: Neck Pain, Shoulder Pain, Arm Pain, Back Pain, Hand Pain, Leg Pain, Foot Pain, Other - Medications/Allergies Allergies/Adverse Reactions: Allergies Allergy/AdvReac Type Severity Reaction Status Date / Time Gadolinium-Containing Allergy Severe Anaphylaxis Verified 04/25/17 10:50 Contrast Medi iodine Allergy Severe Swollen Verified 04/25/17 10:50 tongue clindamycin Allergy Verified 04/25/17 10:50 hydrocodone Allergy Verified 04/25/17 10:50 morphine Allergy Verified 04/25/17 10:50 Penicillins Allergy Verified 04/25/17 10:50 prednisone Allergy "puts Verified 04/25/17 10:52 fluid on my body" Sulfa (Sulfonamide Allergy Verified 04/25/17 10:50 Antibiotics) steroids Allergy "puts Uncoded 04/25/17 10:52 fluid on my body" Medications: Current Medications Acetaminophen (Tylenol) 650 mg PO Q4H PRN PRN Reason: Headache/Fever or Pain(1-3) Last Admin: 05/05/17 06:15 Dose: 650 mg Acetaminophen (Tylenol) 650 mg [place] Q4H PRN PRN Reason: Headache/Fever or Pain(1-3) Albuterol/Ipratropium (Duoneb) 3 ml NEB [id number] Last Admin: 05/07/17 10:16 Dose: Not Given Albuterol/Ipratropium (Duoneb) 3 ml NEB Q2H PRN PRN Reason: SOB &/or Wheezing Artificial Tears (Tears Naturale) 1 drop EA EYE TID [facility] Last Admin: 05/06/17 20:52 Dose: Not Given Atorvastatin Calcium (Lipitor) 20 mg PO HS [facility] Last Admin: 05/06/17 20:27 Dose: 20 mg Calcium Carbonate (Tums) 500 mg PO DAILY [facility] Last Admin: 05/07/17 09:06 Dose: Not Given Cholecalciferol (Vitamin D3) 10,000 units PO DAILY [facility] Last Admin: 05/07/17 09:08 Dose: Not Given Cyclobenzaprine HCl (Flexeril) 10 mg PO Q8H PRN PRN Reason: Muscle Spasm Last Admin: 05/05/17 12:09 Dose: 10 mg Dextrose/Water (Dextrose 50%) 25 gm SLOW IVP PRN PRN PRN Reason: Hypoglycemia Diphenhydramine HCl (Benadryl) 25 mg IVP Q3H PRN PRN Reason: Itching Diphenhydramine HCl (Benadryl) 25 mg PO Q3H PRN PRN Reason: Itching Diphenhydramine HCl (Benadryl) 25 mg IM Q3H PRN PRN Reason: Itching Duloxetine HCl (Cymbalta) 30 mg PO BID [facility] Last Admin: 05/07/17 09:07 Dose: 30 mg Ferrous Sulfate (Feosol) 325 mg PO MoFr@0900 [facility] Last Admin: 05/07/17 09:07 Dose: 325 mg Fluticasone Propionate (Flonase Nasal [place]) 0 gm NASAL HS [facility] Last Admin: 05/06/17 20:31 Dose: 1 spr Gabapentin (Neurontin) 600 mg PO QPM [facility] Last Admin: 05/06/17 20:27 Dose: 600 mg Glucagon (Glucagon) 1 mg IM PRN PRN PRN Reason: Hypoglycemia Guaifenesin (Mucinex) 1,200 mg PO Q12HR [facility] Last Admin: 05/07/17 09:06 Dose: Not Given Hydrochlorothiazide (Hydrochlorothiazide) 25 mg PO DAILY [facility] Last Admin: 05/07/17 09:07 Dose: 25 mg Dextrose/Water (D5w) 1,000 mls @ 0 mls/hr IV .Q0M PRN; As Directed PRN Reason: Hypoglycemia Insulin Human Lispro (Humalog) 0 units SC .MILD SLIDING SCALE PRN PRN Reason: Mild Correctional Scale Last Admin: 05/04/17 22:20 Dose: 3 unit Lidocaine (Lidoderm 5% Patch) 1 patch TD DAILYPRN PRN PRN Reason: Pain Metformin HCl (Glucophage) 500 mg PO BID-[facility] Last Admin: 05/07/17 09:07 Dose: 500 mg Miscellaneous Medication (Lidocaine Patch Removal) 1 each TOP ASDIR [facility] Naloxone HCl (Narcan) 0.2 mg IV Q5MIN PRN PRN Reason: Opiate Reversal Ondansetron HCl (Zofran) 4 mg IVP Q6H PRN PRN Reason: Nausea/Vomiting Oxybutynin Chloride (Ditropan Xl) 5 mg PO DAILY [facility] Last Admin: 05/07/17 09:07 Dose: 5 mg Polyethylene Glycol (Miralax) 17 gm PO DAILYPRN PRN PRN Reason: CONSTIPATION Last Admin: 05/04/17 08:54 Dose: 17 gm Polyethylene Glycol (Miralax) 17 gm PO DAILY [facility] Last Admin: 05/07/17 09:08 Dose: Not Given Potassium Chloride (Klor-Con 10) 10 meq PO TID-[facility] Stop: 05/08/17 12:01 Last Admin: 05/07/17 09:07 Dose: Not Given Promethazine HCl (Phenergan) 12.5 mg IM Q4H PRN PRN Reason: Nausea/Vomiting Senna/Docusate Sodium (Senokot S) 1 tab PO BID [facility] Last Admin: 05/07/17 09:08 Dose: Not Given Sodium Chloride (Flush - Normal Saline) 10 ml IVF Q12HR [facility] Last Admin: 05/07/17 09:06 Dose: 10 ml Sodium Chloride (Flush - Normal Saline) 10 ml IVF PRN PRN PRN Reason: Saline Flush Last Admin: 05/05/17 06:16 Dose: 10 ml Throat Lozenges (Cepastat Lozenges) 1 javier PO Q2H PRN PRN Reason: Sore Throat Tramadol HCl (Ultram) 50 mg PO Q6H PRN PRN Reason: PAIN 1-11/20 Last Admin: 05/03/17 16:00 Dose: 50 mg Tramadol HCl (Ultram) 100 mg PO Q6H PRN PRN Reason: PAIN -05/22 Last Admin: 05/05/17 17:20 Dose: 100 mg
[2017-05-07] MEDS: Artificial Tears 18 DROP/0.9 ML EA EYE SCH (11:33)
[2017-05-07 11:34] VITALS: BP 122/71; TEMP 98.4
--- NOTE | 2017-05-07 12:24 | DIS ---
DATE OF ADMISSION: 05/02/2017 DATE OF DISCHARGE: 05/07/2017 PRIMARY CARE PHYSICIAN: TARIQ Sahu DISCHARGE DISPOSITION: Rehabilitation. PRIMARY DISCHARGE DIAGNOSIS: C2-C4 laminectomy and fusion. SECONDARY DISCHARGE DIAGNOSES: Chronic low back pain, chronic kidney disease stage 2, diabetes type 2, hypertension, dyslipidemia, obesity with BMI 35. PRIMARY PROCEDURE/OPERATION: Cervical laminectomy and fusion. RADIOLOGICAL INVESTIGATION: Chest x-ray. SIGNIFICANT LABS: Hemoglobin 13.4 and creatinine 0.76. DISCHARGE MEDICATIONS: The patient will continue all her previous home medications. Please see my discharge work. Only we are holding aspirin and that can be restarted upon followup visit with a ne urosurgeon and the neurosurgeon clears to restart that medication. CONTRAINDICATIONS: None. CODE STATUS: FULL CODE. INPATIENT CONSULTANTS: Dr. Crawford was primary. Sound team was consulted for medical comanagement . ALLERGIES: GADOLINIUM, IODINE, CLINDAMYCIN, HYDROCODONE. DISCHARGE PLAN: Post hospital, the patient is discharged to Rehab. Subsequently, the patient will follow up with neurosurgeon. HOSPITAL COURSE: A 66-year-old female who was admitted by Dr. Crawford on 05/02/2017, for C2-C4 ashford inectomy and fusion. Postoperatively, we are consulted for medical comanagement. The patient's med ical problems remained stable. Resume home medication while in hospital. On discharge, we continue d her home medication except aspirin. Patient was requiring rehabilitation and that is why with leonard arita of caseworker protective services, rehab accepted her to go today. The patient is seen and examined at bedside today. Please see my progress note from today. We will sign off.
== END 2017-05-07 13:55 | DRG 473 ==
LOC: SURG A 05-02 05:56 → SJJU 05-02 13:52
PROVIDERS: ADMIT Neurological Surgery; ATTEND Neurological Surgery
PROC: 00NW0ZZ Release Cervical Spinal Cord, Open Approach (ICD-10-PCS; principal; 2017-05-02)
PROC: 0RG20Z1 (ICD-10-PCS; 2017-05-02)
DX: M47.12 Other spondylosis with myelopathy, cervical region (principal); I95.9 Hypotension, unspecified; E11.22 Type 2 diabetes mellitus with diabetic chronic kidney disease; G89.29 Other chronic pain; M54.5 Low back pain; I12.9 Hypertensive chronic kidney disease with stage 1 through stage 4 chronic kidney disease, or unspecified chronic kidney disease; N18.2 Chronic kidney disease, stage 2 (mild); E78.5 Hyperlipidemia, unspecified; E66.9 Obesity, unspecified; Z68.35 Body mass index [BMI] 35.0-35.9, adult; Z88.5 Allergy status to narcotic agent; Z88.1 Allergy status to other antibiotic agents; Z88.8 Allergy status to other drugs, medicaments and biological substances; F17.210 Nicotine dependence, cigarettes, uncomplicated
CPT/HCPCS: 36415; 36416; 71010; 76001; 80069; 83735; 85014; 85018; 85049; 94640; 94760; A4216; C1713; C1768; G8978-GP-CM; G8979-GP-CK; G8987-GO-CK; G8988-GO-CI; J1100; J1940; J1956; J2001; J2175; J2250; J2405; J2550; J2704; J3010; J3370; J3490; J7620

== ENCOUNTER 2017-05-24 09:58 | Outpatient (CLI) | payer MEDICARE ==
--- NOTE | 2017-05-24 11:56 | RAD ---
THREE VIEWS CERVICAL SPINE: Comparison: 01-31-17 History: Follow up neck surgery. Cervical spondylosis and neck pain. FINDINGS: Three views of the cervical spine shows the patient to be status post anterior fusion of C3 through C6 with a plate and screws. There may also be fusion of the C6 and C7 levels anteriorly. There has b een interval placement of posterior hardware on the right at C3-4. No perihardware lucency is identi fied. The vertebral bodies demonstrate normal alignment without subluxation. There is a moderate to large osteophyte extending from C2 to the plate of C3. Posterior skin cici are seen. IMPRESSION: Post-surgical changes of the cervical spine as above. POS: [facility]
== END 2017-05-24 09:59 | disposition home or self-care (01) ==
LOC: TBSIIMAG 09:58
PROVIDERS: ATTEND Neurological Surgery
DX: M47.12 Other spondylosis with myelopathy, cervical region (principal); Z98.890 Other specified postprocedural states
CPT/HCPCS: 72040

== ENCOUNTER 2017-07-12 14:29 | Outpatient (CLI) | payer MEDICARE ==
--- NOTE | 2017-07-12 15:42 | RAD ---
THREE VIEWS CERVICAL SPINE: Date: 07-12-17 Comparison: Cervical stenosis. Follow up examination. Comparison: 05-24-17 FINDINGS: Again noted are post-surgical changes related to anterior cervical fusion of C3 through C6 with poste rior fusion of the C3-4 level. As noted on the prior exam there is questionable osseous fusion anteri la involving the C6-7 level. No hardware complication is present. There is no evidence of a fractur e or subluxation. Laminectomy defects are again seen from at the C2-3 and C3-4 levels. Prominent osteophytes are seen a nteriorly at the C2-3 level, unchanged from prior exam. There has been no interval change when compar ed to the prior exam. Vascular calcification seen in the carotid arteries. Clips noted posteriorly ar e no longer seen. IMPRESSION: Stable post-surgical changes related to ACDF of C3 through C6 with stable posterior fusion at the C3- 4 level. POS: [facility]
== END 2017-07-12 14:30 | disposition home or self-care (01) ==
LOC: TBSIIMAG 14:29
PROVIDERS: ATTEND Neurological Surgery
DX: M48.061 Spinal stenosis, lumbar region without neurogenic claudication (principal); Z95.1 Presence of aortocoronary bypass graft
CPT/HCPCS: 72040

== ENCOUNTER 2017-12-06 13:06 | Outpatient (CLI) | payer MEDICARE ==
--- NOTE | 2017-12-06 13:31 | RAD ---
CERVICAL SPINE SERIES THREE VIEWS: History: Neck pain. Comparison: 07-12-17 FINDINGS: The vertebral bodies show extensive post-operative change with anterior plate and screws placed from C3 to C6. There is intervening bone grafts present. Posterior facet screws are seen at the C3-4 level on the right side. All of these findings appear stable. IMPRESSION: Stable post op changes of the spine. POS: [facility]
== END 2017-12-06 13:07 | disposition home or self-care (01) ==
LOC: RAD-FRANK 13:06
PROVIDERS: ATTEND Nurse Practitioner Family
DX: M47.12 Other spondylosis with myelopathy, cervical region (principal); G89.29 Other chronic pain; Z98.1 Arthrodesis status; Z98.890 Other specified postprocedural states
CPT/HCPCS: 72040

== ENCOUNTER 2017-12-07 20:52 | Emergency (ER) | payer MEDICARE ==
[2017-12-07] MEDS ORDERED: Fentanyl 100 MCG/2 ML VIAL ONE (21:33)
[2017-12-07] MEDS ORDERED: Diazepam 5 MG TAB ONE (21:34)
--- NOTE | 2017-12-07 22:36 | CT ---
CT CERVICAL SPINE WITH CORONAL AND SAGITTAL REFORMATIONS: 12/07/17 HISTORY: Neck pain. FINDINGS: There are postop changes of anterior spinal fusion with plate and screws from C3-C6 levels in good po sition and alignment. Right sided posterior facet screws are noted at C3-4 level. Metallic hardware i s intact. Alignment of the vertebral bodies is within normal limits. Degenerative changes are present . No acute fracture or subluxation is identified. The metallic hardware is intact. IMPRESSION: Postop changes of the cervical spine. No acute process. POS: [facility]
[2017-12-07] MEDS ORDERED: Acetaminophen/Codeine 30-300mg Tablet ONE (23:05)
== END 2017-12-07 23:43 | disposition home or self-care (01) ==
LOC: ERS 20:52
DX: M62.838 Other muscle spasm (principal); E11.9 Type 2 diabetes mellitus without complications; E78.5 Hyperlipidemia, unspecified; I10 Essential (primary) hypertension
CPT/HCPCS: 72125; 96372; J3010

== ENCOUNTER 2018-01-30 10:40 | Outpatient (CLI) | payer MEDICARE ==
--- NOTE | 2018-01-30 11:42 | RAD ---
THREE VIEWS CERVICAL SPINE: Comparison: 12-06-17 History: Cervical stenosis status post neck fusion. FINDINGS: AP, lateral, and open mouth odontoid views of the cervical spine shows the patient to be status post anterior fusion of C3 through C6 and posterior fusion of C3 on C4. The vertebral bodies demonstrate n ormal alignment without subluxation. No perihardware lucency is seen. Osteophytes are seen surroundin g the C2-3 intervertebral disc. IMPRESSION: Stable post-surgical changes of the cervical spine as above. POS: [facility]
== END 2018-01-30 10:41 | disposition home or self-care (01) ==
LOC: TBSIIMAG 10:40
PROVIDERS: ATTEND Neurological Surgery
DX: M48.02 Spinal stenosis, cervical region (principal); Z98.890 Other specified postprocedural states; Z98.1 Arthrodesis status
CPT/HCPCS: 72040

== ENCOUNTER 2020-11-26 22:10 | Inpatient (IN) | payer MEDICARE ==
[2020-11-26 22:40] LABS: #Basophils 0.1 thou/uL (0.0-0.2); #Eosinphils 0.3 thou/uL (0.0-0.7); #Lymphocytes 4.2 thou/uL (1.20-3.40); #Monocytes 0.7 thou/uL (0.11-0.59); #Neutrophils 4.5 thou/uL (1.40-6.50); %Basophils 0.9 % (0.0-1.0); %Eosinophils 2.9 % (0.0-10.0); %Lymphocytes 42.6 % (21.0-51.0); %Monocytes 7.4 % (0.0-10.0); %Neutrophils 46.2 % (42.0-75.0); Hemoglobin 12.5 g/dL (12.0-16.0); Mean Corpuscular HGB CONC 32.2 g/dL (32.0-36.0); Mean Corpuscular Hemoglobin 29.2 pg (27.0-31.0); Mean Corpuscular Volume 90.7 fL (78.0-98.0); Mean Platelet Volume 10.7 fL (7.4-10.4); Platelet Count 187 thou/uL (130-400); RBC Distribution Width 13.8 % (11.5-14.5); Red Blood Cell (RBC) Count 4.27 mill/uL (4.20-5.40); White Blood Cell (WBC) Count 9.8 thou/uL (4.8-10.8)
[2020-11-26 22:47] LABS: PTT 26.5 sec (22.9-36.1); Prothrombin Time 13.1 sec (12.0-14.7)
[2020-11-26 22:55] LABS: ALT (SGPT) 16 U/L (8-55); AST (SGOT) 17 U/L (5-34); Albumin 3.8 g/dL (3.4-4.8); Alkaline Phosphatase 102 U/L (40-110); Anion Gap 13 mmol/L (10-20); BUN (Urea Nitrogen) 12 mg/dL (9.8-20.1); Bilirubin, Total 0.3 mg/dL (0.2-1.2); CK (CPK) 66 U/L (29-168); Calc. Creatinine Clearance 0 mL/min (70-130); Calcium 9.2 mg/dL (7.8-10.44); Carbon Dioxide 24 mmol/L (23-31); Chloride 105 mmol/L (98-107); Globulin 2.9 g/dL (2.4-3.5); Glucose 119 mg/dL (83-110); Lipase 25 U/L (8-78); Potassium 3.8 mmol/L (3.5-5.1); Protein, Total 6.7 g/dL (5.8-8.1); Sodium 138 mmol/L (136-145)
[2020-11-26] MEDS ORDERED: Aspirin 325 MG TAB ONE (23:36)
[2020-11-27] MEDS ORDERED: Ondansetron PF 4 MG/2 ML Vial IVP PRN (02:06)
[2020-11-27] MEDS ORDERED: Ondansetron ODT 4 MG TAB PO PRN (02:06)
[2020-11-27 03:23] VITALS: BMI 34.4
[2020-11-27 05:04] LABS: #Basophils 0.1 thou/uL (0.0-0.2); #Eosinphils 0.3 thou/uL (0.0-0.7); #Lymphocytes 4.2 thou/uL (1.20-3.40); #Monocytes 0.8 thou/uL (0.11-0.59); #Neutrophils 3.9 thou/uL (1.40-6.50); %Eosinophils 3.5 % (0.0-10.0); %Lymphocytes 44.8 % (21.0-51.0); %Monocytes 8.5 % (0.0-10.0); %Neutrophils 42.2 % (42.0-75.0); Hemoglobin 12.4 g/dL (12.0-16.0); Mean Corpuscular HGB CONC 32.6 g/dL (32.0-36.0); Mean Corpuscular Hemoglobin 29.6 pg (27.0-31.0); Platelet Count 190 thou/uL (130-400); RBC Distribution Width 13.7 % (11.5-14.5); Red Blood Cell (RBC) Count 4.19 mill/uL (4.20-5.40); White Blood Cell (WBC) Count 9.3 thou/uL (4.8-10.8)
[2020-11-27 05:17] LABS: Anion Gap 12 mmol/L (10-20); BUN (Urea Nitrogen) 12 mg/dL (9.8-20.1); Calc. Creatinine Clearance 89 mL/min (70-130); Calcium 9.5 mg/dL (7.8-10.44); Carbon Dioxide 26 mmol/L (23-31); Chloride 107 mmol/L (98-107); Glucose 110 mg/dL (83-110); Potassium 4.2 mmol/L (3.5-5.1); Sodium 141 mmol/L (136-145)
[2020-11-27] MEDS: Enoxaparin Sodium 40 MG/0.4 ML SYRINGE SC SCH (08:19)
[2020-11-27] MEDS ORDERED: Aspirin 325 MG TAB PO SCH (09:00)
[2020-11-27 09:44] LABS: SARS-CoV-2 PCR NAA for Saliva Not Detected (NotDetected)
[2020-11-27] MEDS ORDERED: HYDROCORTISONE TOP PRN (11:35)
[2020-11-27] MEDS: Atorvastatin Calcium 20 MG TAB PO SCH (21:49)
[2020-11-27] MEDS: Fluticasone Propionate Nasal Spray 16 gm Bottle NASAL SCH (21:49)
[2020-11-27] MEDS: DULoxetine 30 MG CAP PO SCH (21:49)
[2020-11-28] MEDS: Enoxaparin Sodium 40 MG/0.4 ML SYRINGE SC SCH (08:42)
[2020-11-28] MEDS: Fluticasone Propionate Nasal Spray 16 gm Bottle NASAL SCH ×2 (08:42→20:03)
[2020-11-28] MEDS: Cholecalciferol 1,000 UNITS (25 MCG) TAB PO SCH (08:43)
[2020-11-28] MEDS: Aspirin 325 MG TAB PO SCH (08:43)
[2020-11-28] MEDS: Calcium Carbonate 500 MG TAB PO SCH (08:43)
[2020-11-28] MEDS: Gabapentin 300 MG CAP PO SCH (08:43)
[2020-11-28] MEDS: DULoxetine 30 MG CAP PO SCH ×2 (08:43→20:03)
[2020-11-28] MEDS: Ferrous Sulfate 325 MG TAB PO SCH (08:43)
[2020-11-28] MEDS: Oxybutynin ER 5 MG TAB PO SCH (08:43)
[2020-11-28] MEDS: Multivit, Therapeutic 1 TAB PO SCH (08:44)
[2020-11-28] MEDS ORDERED: BIOTIN 1000 MCG PO SCH (09:00)
[2020-11-28] MEDS: Metamucil PACK PO SCH (11:09)
[2020-11-28] MEDS ORDERED: Dextrose 50% Abboject 50 ML SYRINGE IVP PRN (13:00)
[2020-11-28] MEDS ORDERED: HumaLOG 300 UNITS/3 ML VIAL SC PRN (13:00)
[2020-11-28] MEDS ORDERED: Dextrose 5% in Water 1,000 ML IV PRN (13:00)
[2020-11-28] MEDS: Atorvastatin Calcium 20 MG TAB PO SCH (20:03)
[2020-11-29] MEDS: Calcium Carbonate 500 MG TAB PO SCH (08:58)
[2020-11-29] MEDS: Cholecalciferol 1,000 UNITS (25 MCG) TAB PO SCH (08:58)
[2020-11-29] MEDS: Ferrous Sulfate 325 MG TAB PO SCH (08:58)
[2020-11-29] MEDS: DULoxetine 30 MG CAP PO SCH ×2 (08:58→20:40)
[2020-11-29] MEDS: Enoxaparin Sodium 40 MG/0.4 ML SYRINGE SC SCH (08:58)
[2020-11-29] MEDS: Aspirin 325 MG TAB PO SCH (08:58)
[2020-11-29] MEDS: Multivit, Therapeutic 1 TAB PO SCH (08:59)
[2020-11-29] MEDS: Gabapentin 300 MG CAP PO SCH (08:59)
[2020-11-29] MEDS: Oxybutynin ER 5 MG TAB PO SCH (09:00)
[2020-11-29] MEDS: Fluticasone Propionate Nasal Spray 16 gm Bottle NASAL SCH ×2 (09:53→20:40)
[2020-11-29] MEDS: Metamucil PACK PO SCH (09:54)
[2020-11-29 17:45] LABS: Anion Gap 12 mmol/L (10-20); BUN (Urea Nitrogen) 12 mg/dL (9.8-20.1); Calc. Creatinine Clearance 77 mL/min (70-130); Calcium 10.5 mg/dL (7.8-10.44); Carbon Dioxide 28 mmol/L (23-31); Chloride 105 mmol/L (98-107); Glucose 116 mg/dL (83-110); Potassium 4.2 mmol/L (3.5-5.1); Sodium 141 mmol/L (136-145)
[2020-11-29] MEDS: Atorvastatin Calcium 20 MG TAB PO SCH (20:40)
[2020-11-30] MEDS: Aspirin 325 MG TAB PO SCH (08:27)
[2020-11-30] MEDS: Cholecalciferol 1,000 UNITS (25 MCG) TAB PO SCH (08:27)
[2020-11-30] MEDS: Ferrous Sulfate 325 MG TAB PO SCH (08:27)
[2020-11-30] MEDS: Multivit, Therapeutic 1 TAB PO SCH (08:27)
[2020-11-30] MEDS: Calcium Carbonate 500 MG TAB PO SCH (08:27)
[2020-11-30] MEDS: Gabapentin 300 MG CAP PO SCH (08:28)
[2020-11-30] MEDS: DULoxetine 30 MG CAP PO SCH ×2 (08:28→20:36)
[2020-11-30] MEDS: Oxybutynin ER 5 MG TAB PO SCH (08:28)
[2020-11-30] MEDS: Enoxaparin Sodium 40 MG/0.4 ML SYRINGE SC SCH (08:29)
[2020-11-30] MEDS: Fluticasone Propionate Nasal Spray 16 gm Bottle NASAL SCH ×2 (08:30→20:38)
[2020-11-30] MEDS: Metamucil PACK PO SCH (10:20)
[2020-11-30] MEDS: RAMELTEON 8 MG PO SCH ×3 (20:35→22:14)
[2020-11-30] MEDS: Atorvastatin Calcium 20 MG TAB PO SCH (20:36)
[2020-11-30] MEDS: levETIRAcetam 500 MG TAB PO SCH (20:36)
[2020-12-01] MEDS: Calcium Carbonate 500 MG TAB PO SCH (08:35)
[2020-12-01] MEDS: DULoxetine 30 MG CAP PO SCH (08:35)
[2020-12-01] MEDS: Gabapentin 300 MG CAP PO SCH (08:35)
[2020-12-01] MEDS: Oxybutynin ER 5 MG TAB PO SCH (08:37)
[2020-12-01] MEDS: Multivit, Therapeutic 1 TAB PO SCH (08:37)
[2020-12-01] MEDS: Ferrous Sulfate 325 MG TAB PO SCH (08:37)
[2020-12-01] MEDS: Cholecalciferol 1,000 UNITS (25 MCG) TAB PO SCH (08:38)
[2020-12-01] MEDS: Enoxaparin Sodium 40 MG/0.4 ML SYRINGE SC SCH (08:38)
[2020-12-01] MEDS: levETIRAcetam 500 MG TAB PO SCH (08:38)
[2020-12-01] MEDS: Aspirin 325 MG TAB PO SCH (08:38)
[2020-12-01] MEDS: Metamucil PACK PO SCH (08:39)
[2020-12-01] MEDS: Fluticasone Propionate Nasal Spray 16 gm Bottle NASAL SCH (08:39)
[2020-12-01 11:50] VITALS: BP 135/61; TEMP 98
== END 2020-12-01 13:25 | disposition home or self-care (01) | DRG 101 ==
LOC: ERS 22:10 → OBSVTOIN 23:58 → 2NO 23:58
PROVIDERS: ADMIT Student in an Organized Health Care Education/Training Program; ATTEND Internal Medicine
DX: R56.9 Unspecified convulsions (principal); R55 Syncope and collapse; I10 Essential (primary) hypertension; E78.5 Hyperlipidemia, unspecified; E11.9 Type 2 diabetes mellitus without complications; I34.0 Nonrheumatic mitral (valve) insufficiency; R00.1 Bradycardia, unspecified; Z20.822 Contact with and (suspected) exposure to COVID-19; R00.0 Tachycardia, unspecified; Z88.0 Allergy status to penicillin; Z88.1 Allergy status to other antibiotic agents; Z88.2 Allergy status to sulfonamides; Z91.041 Radiographic dye allergy status; Z79.82 Long term (current) use of aspirin; Z90.710 Acquired absence of both cervix and uterus; Z98.890 Other specified postprocedural states
CPT/HCPCS: 36415; 36416; 70450; 70551; 71045; 80048; 80053; 82550; 83690; 83735; 84484; 85025; 85610; 85730; 87635; 93005; 93010; 93306; 95716; 95819; 95957; 96372; G0378; J1650; J1815; U0003; U0005